=== PATIENT | female | born 1990 | race Caucasian/White ===

== ENCOUNTER 2017-05-27 15:14 | Emergency (ER) | payer OTHER ==
[2017-05-27 15:20] VITALS: BP 132/88
--- NOTE | 2017-05-27 15:29 | ER Document Report ---
ED GI/ - General Chief Complaint: Abdominal Pain Stated Complaint: ABDOMINAL PAIN Time Seen by Provider: 05/27/17 15:21 Mode of Arrival: Ambulatory Information source: Patient Notes: 26 yo non smoker, no drugs, marijuana once on friday for the pain, female c/o intermittent epigastric abd cramping with nausea since friday the , better after I eat, diarrhea/urgency too, soft or liquid, black. No pepto bismol. Takes 400-800mg aleve per day for body pain. Thought maybe she drank too much on friday the , ETOH 1-2 times per week, 2 shots. LMP 9-. No hormones. PMH : orthopedic surgery, oral surgery, ADHD . 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 TRAVEL OUTSIDE OF THE [place] IN LAST 30 DAYS: No - Related Data Allergies/Adverse Reactions: Latex, Natural Rubber Allergy (Verified 05/27/17 15:53) Home Medications: Current Home Medications Lisdexamfetamine Dimesylate [Vyvanse] 40 mg PO DAILY 05/27/17 [History] Past Medical History - General Information source: Patient - Social History Smoking Status: Never Smoker Frequency of alcohol use: Heavy - friday night Drug Abuse: Marijuana - once over weekend Lives with: Family Family History: Reviewed & Not Pertinent Renal/ Medical History: Denies: Hx Peritoneal Dialysis Psychiatric Medical History: Reports: Hx Attention Deficit Hyperactivity Disorder Past Surgical History: Reports: Hx Oral Surgery, Hx Orthopedic Surgery Review of Systems - Review of Systems Constitutional: No symptoms reported EENT: No symptoms reported Cardiovascular: No symptoms reported Respiratory: No symptoms reported Gastrointestinal: See HPI Genitourinary: No symptoms reported Female Genitourinary: No symptoms reported Musculoskeletal: No symptoms reported Skin: No symptoms reported Hematologic/Lymphatic: No symptoms reported Neurological/Psychological: No symptoms reported Physical Exam - Vital signs Vitals: Temp Pulse Resp BP Pulse Ox 98.7 F 82 18 132/88 H 99 05/27/17 15:15 05/27/17 15:15 05/27/17 15:15 05/27/17 15:15 05/27/17 15:15 Interpretation: Normal - General General appearance: Appears well, Alert - HEENT Head: Normocephalic, Atraumatic Eyes: Normal Conjunctiva: Normal Pupils: PERRL Pharynx: Normal Neck: Supple. No: Lymphadenopathy - Respiratory Respiratory status: No respiratory distress Chest status: Nontender Breath sounds: Normal Chest palpation: Normal - Cardiovascular Rhythm: Regular Heart sounds: Normal auscultation Murmur: No - Abdominal Inspection: Normal Distension: No distension Bowel sounds: Normal Tenderness: Tender - 2-3 cm above umbilicus, midline.. No: Guarding, Rebound Organomegaly: No organomegaly - Back Back: Normal, Nontender. No: CVA tenderness - Extremities General upper extremity: Normal inspection, Nontender, Normal color, Normal ROM , Normal temperature General lower extremity: Normal inspection, Nontender, Normal color, Normal ROM , Normal temperature, Normal weight bearing. No: Siri's sign - Neurological Neuro grossly intact: Yes Cognition: Normal Orientation: AAOx4 Ambar Coma Scale Eye Opening: Spontaneous Ambar Coma Scale Verbal: Oriented [place] Coma Scale Motor: Obeys Commands [place] Coma Scale Total: 15 Speech: Normal Motor strength normal: LUE, RUE, LLE, RLE Sensory: Normal - Psychological Associated symptoms: Normal affect, Normal mood - Skin Skin Temperature: Warm Skin Moisture: Dry Skin Color: Normal Skin irregularity: negative: Rash Course - Vital Signs Vital signs: Temp Pulse Resp BP Pulse Ox 98.7 F 82 18 132/88 H 99 05/27/17 15:15 05/27/17 15:15 05/27/17 15:15 05/27/17 15:15 05/27/17 15:15 - Laboratory Result Diagrams: 05/27/17 15:45 05/27/17 15:45 Laboratory results interpreted by me: 05/27/17 15:45 Lipase 332.2 H Discharge - Discharge Clinical Impression: Upper GI bleed, mild elevated lipase Condition: Good Disposition: HOME, SELF-CARE Instructions: Upper Gastrointestinal Bleeding ([facility]), Evaluation of Upper Abdominal Pain ([facility]), Antinausea Medication ([facility]) Additional Instructions: NO NSAIDs NO ETOH NO ASPIRIN TAKE THE NEXIUM DAILY GET APPOINTMENT WITH GENERAL P[employer]ENGER AGENT FOR EGD TO ER IF DIZZY, INCREASED ANGUIANO, INCREASED BLACK STOOLS Please complete the patient satisfaction survey if you get one, and return it.. If you do not receive a survey, then you can go to the [facility] website, [email or web address] and place your comments about your very good care. Thank you very much. It was a pleasure being your medical provider today. Prescriptions: Ondansetron [Zofran Odt] 8 mg PO Q6HP PRN #30 tab.rapdis PRN Reason: Esomeprazole Magnesium [Nexium] 40 mg PO DAILY #60 capsule.dr Referrals: PAULA WYNNE MD [ACTIVE STAFF] -
[2017-05-27] MEDS ORDERED: LANSOPRAZOLE 30 MG TAB.RAP.DR PO ONE (15:39)
[2017-05-27 16:01] LABS: ABSOLUTE EOSINOPHILS # (AUTO) 0.1 10^3/uL (0.0-0.6); ABSOLUTE LYMPHOCYTES (AUTO) 1.5 10^3/uL (0.5-4.7); ABSOLUTE MONOCYTES (AUTO) 0.4 10^3/uL (0.1-1.4); ABSOLUTE NEUT (AUTO) 6.1 10^3/uL (1.7-8.2); BASOPHILS % (AUTO) 0.5 % (0-2); HEMATOCRIT 41.1 % (36.0-47.0); HEMOGLOBIN 13.7 g/dL (12.0-15.5); LYMPHOCYTES % (AUTO) 18.3 % (13-45); MEAN CORPUSCULAR HEMOGLOBIN 29.9 pg (27.0-33.4); MEAN CORPUSCULAR HGB CONC 33.2 g/dL (32.0-36.0); MEAN CORPUSCULAR VOLUME 90 fl (80-97); MONOCYTES % (AUTO) 4.4 % (3-13); RED BLOOD COUNT 4.57 10^6/uL (3.72-5.28); SEGMENTED NEUTROPHILS % (AUTO) 75.8 % (42-78); WHITE BLOOD COUNT 8.1 10^3/uL (4.0-10.5)
[2017-05-27 16:22] LABS: ALANINE AMINOTRANSFERASE 21 U/L (9-52); ALBUMIN 4.7 g/dL (3.5-5.0); ALKALINE PHOSPHATASE 67 U/L (38-126); ANION GAP 14 (5-19); ASPARTATE AMINO TRANSFERASE 20 U/L (14-36); BILIRUBIN,DIRECT 0.4 mg/dL (0.0-0.4); BILIRUBIN,TOTAL 1.3 mg/dL (0.2-1.3); BLOOD UREA NITROGEN 12 mg/dL (7-20); CALCIUM 9.8 mg/dL (8.4-10.2); CARBON DIOXIDE 25 mmol/L (22-30); CHLORIDE 101 mmol/L (98-107); CREATININE RESULT 0.71 mg/dL (0.52-1.25); GLUCOSE 86 mg/dL (75-110); LIPASE 332.2 U/L (23-300); POTASSIUM 3.7 mmol/L (3.6-5.0); TOTAL PROTEIN 7.3 g/dL (6.3-8.2)
== END 2017-05-27 16:48 | disposition home or self-care (01) ==
LOC: ER 15:14
DX: K92.2 Gastrointestinal hemorrhage, unspecified (principal); R74.8 Abnormal levels of other serum enzymes; R10.9 Unspecified abdominal pain; R11.0 Nausea; M79.1 Myalgia; Z91.040 Latex allergy status
CPT/HCPCS: 36415; 80053; 82272; 83690; 84703; 85025; 99284